=== PATIENT | male | born 1955 | race Caucasian/White ===

== ENCOUNTER 2019-10-08 20:22 | Emergency (ER) | payer OTHER ==
--- NOTE | 2019-10-08 21:15 | RAD ---
2 views left shoulder: 10/08/2019 COMPARISON: None HISTORY: Left shoulder pain FINDINGS: There is a subcoracoid anterior dislocation of the left glenohumeral joint. There is mild d egenerative change involving the acromioclavicular joint. IMPRESSION: Dislocation of the left glenohumeral joint. Postreduction imaging advised.
[2019-10-08] MEDS ORDERED: Morphine 4 MG/ML VIAL ONE (21:32)
[2019-10-08] MEDS ORDERED: Ondansetron PF 4 MG/2 ML Vial ONE (21:32)
[2019-10-08] MEDS ORDERED: Fentanyl 100 MCG/2 ML VIAL ONE (23:03)
--- NOTE | 2019-10-08 23:47 | RAD ---
2 views left shoulder: 10/08/2019 COMPARISON: Prior study on same day HISTORY: Status post reduction FINDINGS: The previously noted dislocation of the left glenohumeral joint has been reduced. There is degenerative change of the left acromioclavicular joint. IMPRESSION: Interval reduction of left glenohumeral joint.
== END 2019-10-09 00:14 | disposition home or self-care (01) ==
LOC: ERS 20:22
DX: S43.015A Anterior dislocation of left humerus, initial encounter (principal); S80.212A Abrasion, left knee, initial encounter; F41.9 Anxiety disorder, unspecified; W18.2XXA Fall in (into) shower or empty bathtub, initial encounter
CPT/HCPCS: 23650; 96374; 96375; J2270; J2405; J3010

== ENCOUNTER 2019-12-28 06:32 | Outpatient (CLI) | payer BC, OTHER ==
[2019-12-28 17:22] LABS: SARS-CoV-2 MS2 Positive; SARS-CoV-2 N Gene Negative; SARS-CoV-2 S Gene Negative; SARS-CoV-2 orf1ab Negative
== END 2019-12-28 06:33 | disposition home or self-care (01) ==
LOC: LABBT 06:32
PROVIDERS: ATTEND Orthopaedic Surgery
DX: Z01.812 Encounter for preprocedural laboratory examination (principal); Z11.59 Encounter for screening for other viral diseases; M75.102 Unspecified rotator cuff tear or rupture of left shoulder, not specified as traumatic
CPT/HCPCS: 87635; U0003

== ENCOUNTER 2020-01-01 09:14 | Day surgery (SDC) | payer BC ==
[2019-12-28 11:09] VITALS: BMI 35.3
[2020-01-01] MEDS ORDERED: Fentanyl 100 MCG/2 ML VIAL ONE ×3 (10:21→14:42)
[2020-01-01] MEDS ORDERED: Midazolam HCl 2 mg/2 ml Vial ONE (10:21)
[2020-01-01] MEDS ORDERED: Lidocaine 1% (PF) 30 ML VIAL ONE (10:22)
[2020-01-01] MEDS ORDERED: HYDROmorphone 2 MG/ML VIAL ONE (11:32)
[2020-01-01] MEDS ORDERED: Ondansetron PF 4 MG/2 ML Vial ONE (11:49)
[2020-01-01] MEDS ORDERED: Ropivacaine 0.2% HCl/PF (40 MG/20 ML VIAL) ONE (11:49)
[2020-01-01] MEDS ORDERED: Rocuronium Bromide 10 MG/ML (10ML VIAL) ONE (11:49)
[2020-01-01] MEDS ORDERED: Glycopyrrolate 0.2 MG/ML 5 ML SYRINGE ONE (11:49)
[2020-01-01] MEDS ORDERED: Ketorolac Tromethamine 30 MG/ML VIAL ONE (11:49)
[2020-01-01] MEDS ORDERED: PHENYLEPHRINE-NS 100 MCG/ML 10 ML SYRINGE ONE (11:49)
[2020-01-01] MEDS ORDERED: PROPOFOL 200 MG/20 ML VIAL ONE (11:49)
[2020-01-01] MEDS ORDERED: Ropivacaine 0.5% HCl/PF (150 MG/30 ML VIAL) ONE (11:49)
[2020-01-01] MEDS ORDERED: Lidocaine 1% PF 5 ML VIAL ONE (11:49)
[2020-01-01] MEDS ORDERED: EPHEDRINE 25 MG/5 ML SYRINGE ONE (11:49)
[2020-01-01] MEDS ORDERED: Dexamethasone 20 MG/5 ML VIAL ONE (11:49)
[2020-01-01] MEDS ORDERED: Phenylephrine 10 MG/ML VIAL ONE (12:45)
[2020-01-01] MEDS ORDERED: Zolpidem Tartrate 5 MG TAB PO PRN (14:37)
[2020-01-01] MEDS ORDERED: traMADol HCl 50 MG TAB PO PRN ×2 (14:37)
[2020-01-01] MEDS ORDERED: Ropivacaine 0.2% 550 ML 550 ML NERVE BLCK SCH (14:37)
[2020-01-01] MEDS ORDERED: Ondansetron PF 4 MG/2 ML Vial IVP PRN (14:37)
[2020-01-01] MEDS ORDERED: HYDROcodone/Acetaminophen 10/325 mg Tablet PO PRN ×2 (14:37)
[2020-01-01] MEDS ORDERED: Fentanyl 100 MCG/2 ML VIAL IV PRN (14:37)
[2020-01-01] MEDS ORDERED: Acetaminophen 325 MG TAB PO PRN (14:37)
[2020-01-01] MEDS ORDERED: Promethazine HCl 25 MG/ML VIAL IM PRN (14:37)
--- NOTE | 2020-01-02 01:10 | OP ---
DATE OF PROCEDURE: 01/01/2020 PROCEDURE PERFORMED: 1. Left shoulder open rotator cuff repair. 2. Open subacromial decompression. 3. Biceps tenotomy. PREOPERATIVE DIAGNOSES: Full-thickness massive left rotator cuff tear with history of shoulder dislocation and biceps tendon disruption. POSTOPERATIVE DIAGNOSES: Full-thickness massive left rotator cuff tear with history of shoulder dislocation and biceps tendon disruption. COMPLICATIONS: None. ESTIMATED BLOOD LOSS: 150 mL. IMPLANTS: Four [employer] SwiveLock anchors were utilized. INDICATIONS: Mr. Whittington is a 64-year-old male who fell and dislocated his left shoulder. He sustained a full-thickness rotator cuff tear. He was unable to rehab his shoulder and was found to have a massive rotator cuff tear with retraction. He also had disruption of the biceps tendon and dislocation of the tendon out of the sheath. He was indicated for subacromial decompression, rotator cuff repair as well as biceps tenotomy. DESCRIPTION OF OPERATION: Mr. Whittington was identified in the preoperative holding area. His correct extremity was marked. He was carried to the operating room. He was positioned supine. General anesthesia was induced. A multidisciplinary time-out was performed. The left upper extremity was prepped and draped in sterile fashion. We began the procedure with diagnostic arthroscopy. The patient's bony landmarks were palpated. We then made a small incision posteriorly on the shoulder and inserted the arthroscope. We identified that patient had grade 2 and 3 changes of articular cartilage of the glenoid and humerus. He had several loose bodies which were removed arthroscopically. There were several areas of labral tearing and fraying of the anterior and inferior aspect of the labrum. The biceps tendon was subluxated out of the groove over the subscapularis. The subscapularis itself was largely intact. There was some fraying superiorly. The superior rotator cuff was completely torn with retraction back to the glenoid level. At this point, we performed a debridement of the labral as well as search for other loose bodies, and these were removed. We debrided synovium. We then made an open approach to the lateral shoulder. We dissected down through the subcutaneous tissues to the fascia. The fascia of the deltoid was opened. We then exposed the underlying glenohumeral joint. We performed a thorough bursectomy using a Ferrera scissors. We cleared the acromial space of bursal tissue, performing acromial bursectomy. We then lightly debrided the undersurface of the acromion. Next, we identified the rotator cuff. We placed multiple clamps on the rotator cuff to pull it back into its anatomic position. We then placed 2 medial row anchors, total of eight sutures. These were SwiveLock FiberTape anchors, were passed through the rotator cuff. These were able to help restore the footprint of the rotator cuff itself. There was a split between the infraspinatus and supraspinatus with retraction. We brought the rotator cuff back down laterally into two lateral row anchors. This applied a secure repair. There was a fair amount of tension on the rotator cuff itself given that it was chronically retracted. We lysed all adhesions bluntly using finger dissection. We took the shoulder through range of motion, confirming that the rotator cuff remained intact. At this point, we searched for the biceps tendon once more. The biceps tendon was found to be significantly frayed and partially torn as well as dislocated anteriorly. We decided to perform a biceps tenotomy. At this point, the tendon was clipped with scissors and allowed to retract. We then closed appropriately in layers. A sterile dressing was applied. The patient was taken to recovery room in a sling. He was in good condition. Job ID: [id number]
== END 2020-01-01 16:45 | disposition home or self-care (01) ==
LOC: SDC 09:14
PROVIDERS: ATTEND Orthopaedic Surgery
PROC: 0LQ20ZZ Repair Left Shoulder Tendon, Open Approach (ICD-10-PCS; principal; 2020-01-01)
PROC: 3E0T3BZ Introduction of Anesthetic Agent into Peripheral Nerves and Plexi, Percutaneous Approach (ICD-10-PCS; principal; 2020-01-01)
PROC: 0RNK0ZZ Release Left Shoulder Joint, Open Approach (ICD-10-PCS; principal; 2020-01-01)
DX: S46.012A Strain of muscle(s) and tendon(s) of the rotator cuff of left shoulder, initial encounter (principal); G89.18 Other acute postprocedural pain; K21.9 Gastro-esophageal reflux disease without esophagitis; F41.9 Anxiety disorder, unspecified; D64.9 Anemia, unspecified; E66.9 Obesity, unspecified; Z68.35 Body mass index [BMI] 35.0-35.9, adult; Z79.899 Other long term (current) drug therapy; Z87.891 Personal history of nicotine dependence; Z88.8 Allergy status to other drugs, medicaments and biological substances; W19.XXXA Unspecified fall, initial encounter
CPT/HCPCS: A4306; C1713; J0690; J1100; J1170; J1885; J2001; J2250; J2370; J2405; J2704; J2795; J3010

== ENCOUNTER 2022-10-18 13:23 | Outpatient (CLI) | payer MEDICARE, BC | END 2022-10-18 13:24 | disposition home or self-care (01) | LOC: ULT 13:23 | PROVIDERS: ATTEND Internal Medicine | DX: R20.9 Unspecified disturbances of skin sensation (principal) | CPT/HCPCS: 93923 ==

== ENCOUNTER 2023-12-19 05:37 | Observation (INO) | payer MEDICARE, BC ==
[2023-12-14 11:06] VITALS: BMI 34.9
[2023-12-19] MEDS ORDERED: Sodium Chloride 0.9% 100 ML ONE ×2 (06:13→06:53)
[2023-12-19] MEDS ORDERED: Tranexamic Acid 1,000 MG/10 ML VIAL ONE ×2 (06:13→10:19)
[2023-12-19] MEDS ORDERED: PROPOFOL 20 ML ONE (06:20)
[2023-12-19] MEDS ORDERED: fentaNYL PF 100 MCG/2 ML SYRINGE ONE ×3 (06:20→07:50)
[2023-12-19] MEDS ORDERED: Midazolam HCl 2 mg/2 ml Vial ONE (06:20)
[2023-12-19] MEDS ORDERED: Vancomycin (BATCH) 2 GM in Premix 1 BAG IVPB SCH (06:30)
[2023-12-19] MEDS ORDERED: Bupivacaine PF 0.5% 30 ML VIAL ONE (06:37)
[2023-12-19] MEDS ORDERED: Bupivacaine 0.25% HCL 30 ML VIAL ONE (06:49)
[2023-12-19] MEDS ORDERED: CEFAZOLIN 2 GM VIAL ONE (06:53)
[2023-12-19] MEDS ORDERED: Bupivacaine HCl 0.5%/Epinephrine 1:200,000/PF 30 ml Vial ONE (07:00)
[2023-12-19] MEDS ORDERED: ePHEDrine Sulfate 50 MG/10 ML VIAL ONE (07:34)
[2023-12-19] MEDS ORDERED: Ondansetron PF 4 MG/2 ML Vial ONE (07:39)
[2023-12-19] MEDS ORDERED: Dexamethasone 20 MG/5 ML VIAL ONE (07:39)
[2023-12-19] MEDS ORDERED: Ketorolac Tromethamine 30 MG (1 mL) VIAL ONE (07:39)
[2023-12-19] MEDS ORDERED: HYDROmorphone 2 MG/ML VIAL ONE (07:50)
[2023-12-19] MEDS ORDERED: HYDROcodone/Acetaminophen 10/325 mg Tablet PO PRN ×2 (09:47)
[2023-12-19] MEDS ORDERED: Ondansetron PF 4 MG/2 ML Vial IVP PRN ×2 (09:47→10:00)
[2023-12-19] MEDS ORDERED: Promethazine HCl 25 MG/ML VIAL IM PRN ×3 (09:47→10:03)
[2023-12-19] MEDS ORDERED: Acetaminophen 325 MG TAB PO PRN (09:47)
[2023-12-19] MEDS ORDERED: fentaNYL 50 mcg/mL 1 mL Vial SLOW IVP PRN ×2 (09:47→09:59)
[2023-12-19] MEDS ORDERED: diphenhydrAMINE 25 MG CAP PO PRN (09:47)
[2023-12-19] MEDS ORDERED: traMADol HCl 50 MG TAB PO PRN (09:47)
[2023-12-19] MEDS ORDERED: Zolpidem Tartrate 5 MG TAB PO PRN ×2 (09:47→10:00)
[2023-12-19] MEDS ORDERED: Tranexamic Acid 1,000 MG in Sodium Chloride 0.9% 100 ML IVPB SCH (10:00)
[2023-12-19] MEDS ORDERED: Ropivacaine 0.2% 550 ML 550 ML NERVE BLCK SCH (10:00)
[2023-12-19] MEDS ORDERED: HYDROcodone/Acetaminophen 5/325 mg Tablet PO PRN (10:00)
[2023-12-19] MEDS ORDERED: HYDROmorphone 2 MG/ML VIAL SLOW IVP PRN (10:03)
[2023-12-19] MEDS ORDERED: Ondansetron HCl/PF 4 MG/2 ML Vial IVP PRN (10:03)
[2023-12-19] MEDS: CEFAZOLIN 2 GM in Sodium Chloride 0.9% 100 ML IVPB SCH (12:55)
[2023-12-19] MEDS: Ketorolac Tromethamine 30 MG (1 mL) VIAL IVP SCH (12:55)
[2023-12-19] MEDS: Sodium Chloride 0.9% 1,000 ML IV SCH (12:56)
[2023-12-19] MEDS: Vancomycin 2 GM in Sodium Chloride 0.9% 500 ML IVPB SCH (17:59)
[2023-12-19] MEDS: Fluticasone Propionate Nasal Spray 16 gm Bottle NASAL SCH (20:19)
[2023-12-19] MEDS: Aspirin 81 mg Enteric Coated Tablet PO SCH (20:19)
[2023-12-19] MEDS: Ferrous Gluconate 324 MG TAB PO SCH (20:19)
[2023-12-19] MEDS: Senokot S 8.6-50 MG TAB PO SCH (20:20)
[2023-12-19] MEDS ORDERED: Non-Formulary Item 1 EACH (Fluticasone Propionate [Flonase Allergy Relief] 9.9 ML Bottle) EA NARE SCH (21:00)
[2023-12-20] MEDS: HYDROcodone/Acetaminophen 5/325 mg Tablet PO PRN (00:43)
[2023-12-20 08:45] LABS: Hemoglobin 11.6 g/dL (14.0-18.0); Mean Corpuscular HGB CONC 33.1 g/dL (32.0-36.0); Mean Corpuscular Hemoglobin 31.3 pg (27.0-31.0); Mean Corpuscular Volume 94.3 fL (78.0-98.0); Mean Platelet Volume 11.4 fL (7.4-10.4); Platelet Count 221 10x3/uL (130-400); RBC Distribution Width 13.4 % (11.5-14.5); Red Blood Cell (RBC) Count 3.71 mill/uL (4.70-6.10)
[2023-12-20] MEDS: Pantoprazole DR 40 MG TAB PO SCH (08:45)
[2023-12-20] MEDS: Multivit, Therapeutic 1 TAB PO SCH (08:45)
[2023-12-20] MEDS: FLUoxetine HCl 10 MG CAP PO SCH (08:46)
[2023-12-20] MEDS: Hydrochlorothiazide 25 MG TAB PO SCH (08:46)
[2023-12-20] MEDS: Atorvastatin Calcium 40 MG TAB PO SCH (08:46)
[2023-12-20] MEDS: Montelukast Sodium 10 mg Tablet PO SCH (08:46)
[2023-12-20] MEDS: Amlodipine 5 MG TAB PO SCH (08:46)
[2023-12-20] MEDS: Losartan 25 MG TAB PO SCH (08:46)
[2023-12-20] MEDS ORDERED: Non-Formulary Item 1 EACH (Omeprazole [Omeprazole] 40 MG Capsule.Dr) PO SCH (09:00)
[2023-12-20] MEDS ORDERED: Non-Formulary Item 1 EACH (Losartan/Hydrochlorothiazide [Losartan-Hctz 100-12.5 Mg Tab] 1 PO SCH (09:00)
[2023-12-20] MEDS ORDERED: Non-Formulary Item 1 EACH (Multivitamin [Multi-Vitamin Daily] 1 TABLET Tablet) PO SCH (09:00)
[2023-12-20] MEDS: Multivitamin W/ Minerals 1 TAB PO SCH (09:59)
[2023-12-20 11:41] VITALS: BP 145/75; TEMP 98
[2023-12-21] MEDS ORDERED: CeleCOXIB 100 MG CAP PO SCH (09:00)
== END 2023-12-20 15:00 | disposition home or self-care (01) ==
LOC: SDC 05:37 → SURG A 12:22
PROVIDERS: ADMIT Orthopaedic Surgery; ATTEND Orthopaedic Surgery
PROC: 0SRC0JZ Replacement of Right Knee Joint with Synthetic Substitute, Open Approach (ICD-10-PCS; principal; 2023-12-19)
PROC: 3E0T3BZ Introduction of Anesthetic Agent into Peripheral Nerves and Plexi, Percutaneous Approach (ICD-10-PCS; 2023-12-19)
DX: M17.11 Unilateral primary osteoarthritis, right knee (principal); K21.9 Gastro-esophageal reflux disease without esophagitis; E66.9 Obesity, unspecified; Z68.37 Body mass index [BMI] 37.0-37.9, adult; Z96.652 Presence of left artificial knee joint; Z87.891 Personal history of nicotine dependence; Z79.899 Other long term (current) drug therapy; Z91.048 Other nonmedicinal substance allergy status
CPT/HCPCS: 27447; 64447; 85027; 97110 ×2; 97116 ×2; 97530 ×2; A4306; C1713; C1776 ×2; C1889; J3370; J0665; J1100; J1170; J1885; J2250; J2405; J2704; J2795; J3490; J7030; J7050